=== PATIENT | female | born 1990 | race American Indian/Alaskan Native ===

== ENCOUNTER 2016-04-26 17:03 | Emergency (ER) | payer OTHER ==
[2016-04-26 17:18] VITALS: BP 134/87
--- NOTE | 2016-04-26 20:34 | Emergency Department Report ---
ED Neck Pain/Injury HPI - General Chief Complaint: Neck Pain/Injury Stated Complaint: BACK PAIN, 19 WKS Time Seen by Provider: 04/26/16 20:30 Source: patient Mode of arrival: Ambulatory Limitations: No Limitations - History of Present Illness MD Complaint: neck pain -: Gradual, week(s) Radiation: right lateral, right shoulder Severity: moderate Quality: aching Improves With: none Context: lifting, turning/bending, driving Associated Symptoms: denies: headache, fever, weakness, vertigo, difficulty swallowing, nausea, vomiting - Related Data Allergies Allergy/AdvReac Type Severity Reaction Status Date / Time No Known Allergies Allergy Unverified 04/26/16 17:18 ED Review of Systems ROS: Stated complaint: BACK PAIN, 19 WKS Other details as noted in HPI Constitutional: denies: chills, fever Eyes: denies: eye pain, eye discharge, vision change ENT: denies: ear pain, throat pain Respiratory: denies: cough, shortness of breath, wheezing Gastrointestinal: as per HPI Musculoskeletal: other (atraumatic neck pain and stiffness right shoulder and right upper back pain with movement. Awoke with the pain) Skin: denies: rash, lesions Neurological: denies: headache, numbness, paresthesias ED Past Medical Hx - Social History Smoking Status: Never Smoker Substance Use Type: None ED Physical Exam - General Limitations: No Limitations General appearance: alert, in no apparent distress - Head Head exam: Present: atraumatic, normocephalic - Eye Eye exam: Present: normal appearance - ENT ENT exam: Present: mucous membranes moist - Neck Neck exam: Present: tenderness, other (right torticollis. No vertebral point tenderness. No lymphadenopathy.) - Respiratory Respiratory exam: Present: normal lung sounds bilaterally. Absent: respiratory distress - Cardiovascular Cardiovascular Exam: Present: regular rate - Back Exam Back exam: Present: normal inspection - Neurological Exam Neurological exam: Present: alert, oriented X3 ED Course Vital Signs 04/26/16 17:14 Temperature 98.7 F Pulse Rate 78 Respiratory 18 Rate Blood Pressure 134/87 O2 Sat by Pulse 100 Oximetry Critical care attestation.: If time is entered above; I have spent that time in minutes in the direct care of this critically ill patient, excluding procedure time. ED Disposition Clinical Impression: Torticollis Disposition: DISCHARGED TO HOME OR SELFCARE Is pt being admited?: No Does the pt Need Aspirin: No Condition: Stable Instructions: Spasmodic Torticollis (ED) Referrals: PRIMARY CARE, [Primary Care Provider] - 3-5 Days VIPUL LAM MD [Staff Physician] - 3-5 Days
== END 2016-04-26 20:39 | disposition home or self-care (01) ==
LOC: ED 17:03
DX: M43.6 Torticollis (principal)
CPT/HCPCS: 99282